=== PATIENT | female | born 1990 | race Caucasian/White ===

== ENCOUNTER 2018-09-04 18:57 | Emergency (ER) | payer OTHER ==
[~2018-09-04] VITALS: Ht 160 cm; Wt 49.9 kg
[2018-09-04] MEDS ORDERED: NORCO 5-325 TA1 EACH PO (20:08)
[2018-09-04 20:27] VITALS: BP 103/75
== END 2018-09-04 20:31 | disposition home or self-care (01) ==
LOC: ER 18:57
DX: S52.92XA Unspecified fracture of left forearm, initial encounter for closed fracture (principal); J02.9 Acute pharyngitis, unspecified; W10.8XXA Fall (on) (from) other stairs and steps, initial encounter; Y93.89 Activity, other specified; Y92.89 Other specified places as the place of occurrence of the external cause; Y99.8 Other external cause status

== ENCOUNTER → 2020-03-14 | Outpatient (CLI) | payer OTHER ==
[~2020-03-14] MED LIST: NORCO 5-325 TA1 EACH PO
== END ==
LOC: CAT 13:12
PROVIDERS: ATTEND Family Medicine
DX: R51.9 Headache, unspecified (principal)